=== PATIENT | male | born 2000 | race African-American/Black ===

== ENCOUNTER 2019-07-02 09:59 | Emergency (ER) | payer MEDICAID ==
[~2019-07-02] VITALS: Ht 193 cm; Wt 100.0 kg
[2019-07-02 11:33] LABS: BASOPHILS % (AUTO) 0.4 % (0.0-2.0); EOSINOPHILS % (AUTO) 0.4 % (1.0-6.0); HEMATOCRIT 49.2 % (41-53); HEMOGLOBIN 16.2 g/dL (13.5-17.5); LYMPHOCYTES # (AUTO) 1.8 K/uL (1.0-4.8); LYMPHOCYTES % (AUTO) 22.9 % (22.0-44.0); MEAN CORPUSCULAR HEMOGLOBIN 28.3 pg (26.0-34.0); MEAN CORPUSCULAR HGB CONC 32.9 G/dL (31.0-37.0); MEAN CORPUSCULAR VOLUME 86 fL (80-100); MONOCYTES # (AUTO) 0.3 K/uL (0.1-1.0); MONOCYTES % (AUTO) 3.6 % (2.0-9.0); NEUTROPHILS # (AUTO) 5.8 K/uL (1.8-7.7); NEUTROPHILS % (AUTO) 72.7 % (40.0-70.0); PLATELET COUNT (AUTO) 223 K/uL (150-450); RED BLOOD CELL COUNT(AUTO) 5.72 MIL/uL (4.50-5.90); RED CELL DISTRIBUTION WIDTH 13.3 % (11.5-14.5)
[2019-07-02 11:45] LABS: ANION GAP 9 mmol/L (8-16); CALCIUM, TOTAL 9.4 mg/dL (8.8-10.5); CARBON DIOXIDE 28 mmol/L (22-29); CHLORIDE 100 mmol/L (98-107); CREATININE 1.12 mg/dL (0.60-1.30); GLOMERULAR FILTR. RATE CALC > 60 mL/min (>60); GLUCOSE,RANDOM 88 mg/dL (70-110); POTASSIUM 3.7 mmol/L (3.5-5.1); SODIUM SERUM 137 mmol/L (136-145); UREA NITROGEN, BLOOD 8 mg/dL (7-18)
[2019-07-02 12:06] LABS: ALANINE AMINOTRANSFERASE 30 U/L (12-78); ALBUMIN 4.8 g/dL (3.4-5.0); ALKALINE PHOSPHATASE 57 U/L (46-116); ASPARTATE AMINOTRANSFERASE 18 U/L (15-37); BILIRUBIN,TOTAL 1.1 mg/dL (0.1-1.0); THYROID STIMULATING HORMONE 0.48 uIU/mL (0.36-3.74); TOTAL PROTEIN, SERUM 8.3 g/dL (6.4-8.2)
[2019-07-02] MEDS ORDERED: LORazepam 1 MG TABLET PO ONE (13:45)
[2019-07-02 14:01] VITALS: BP 133/87
== END 2019-07-02 14:08 | disposition home or self-care (01) ==
LOC: EMS 10:00
DX: F43.0 Acute stress reaction (principal)
CPT/HCPCS: 36415; 80053; 84443; 85025; 99284; G0480

== ENCOUNTER 2019-10-17 13:48 | Emergency (ER) | payer MEDICAID ==
[~2019-10-17] VITALS: Ht 195.6 cm; Wt 104.5 kg
[2019-10-17] MEDS: AZITHROMYCIN 500 MG TABLET PO ONE (15:20)
[2019-10-17] MEDS: LIDOCAINE/PF 1% 2 ML VIAL IM ONE (15:20)
[2019-10-17] MEDS: CefTRIAXone SODIUM 1 GM/VIAL IM ONE (15:20)
[2019-10-17 15:33] LABS: APPEARANCE,URINE CLEAR (CLEAR); BILIRUBIN,URINE NEGATIVE (NEGATIVE); GLUCOSE, URINE (UA) NEGATIVE (NEGATIVE); KETONES,URINE NEGATIVE (NEGATIVE); LEUKOCYTE ESTERASE ,URINE NEGATIVE (NEGATIVE); NITRATE,URINE NEGATIVE (NEGATIVE); OCCULT BLOOD,URINE NEGATIVE (NEGATIVE); PROTEIN,URINE NEGATIVE (NEGATIVE); UROBILINOGEN,URINE 0.2 mg/dL (<=1.0)
[2019-10-17 15:42] LABS: BACTERIA,URINE None Seen /HPF (None Seen); RBC,URINE None Seen /HPF (0-2); SQUAMOUS EPITHELIAL CELL,UR Rare /LPF (None Seen); WBC,URINE None Seen /HPF (0-5)
[2019-10-17 16:14] VITALS: BP 133/88
== END 2019-10-17 16:15 | disposition home or self-care (01) ==
LOC: EMS 13:50
DX: Z11.3 Encounter for screening for infections with a predominantly sexual mode of transmission (principal); F12.90 Cannabis use, unspecified, uncomplicated
CPT/HCPCS: 81001; 87491; 87591; 96372; 99283; J0696; J3490

== ENCOUNTER 2019-10-21 17:21 | Emergency (ER) | payer SELFPAY ==
[~2019-10-21] VITALS: Ht 195.6 cm; Wt 106.8 kg
[2019-10-21] MEDS ORDERED: IBUPROFEN 400 MG TABLET PO ONE (18:45)
[2019-10-21 20:48] VITALS: BP 132/87
== END 2019-10-21 20:49 | disposition home or self-care (01) ==
LOC: EMS 17:23
DX: N41.9 Inflammatory disease of prostate, unspecified (principal); F12.90 Cannabis use, unspecified, uncomplicated
CPT/HCPCS: 76870

== ENCOUNTER 2020-04-24 14:33 | Emergency (ER) | payer MEDICAID, OTHER ==
[~2020-04-24] VITALS: Ht 195.6 cm; Wt 100.0 kg
[2020-04-24 14:34] VITALS: BP 147/82
[2020-04-24] MEDS ORDERED: PERTUSS(ACELL),DIPH,TET VAC/PF 0.5 ML VIAL IM ONE (16:00)
[2020-04-24] MEDS ORDERED: AMOX TR/POT CLAV 875 MG/125 MG TABLET PO ONE (16:00)
== END 2020-04-24 16:31 | disposition home or self-care (01) ==
LOC: EMS 14:33
DX: S80.811A Abrasion, right lower leg, initial encounter (principal); F12.90 Cannabis use, unspecified, uncomplicated; W54.0XXA Bitten by dog, initial encounter; Y93.89 Activity, other specified; Y92.89 Other specified places as the place of occurrence of the external cause; Y99.8 Other external cause status
CPT/HCPCS: 90471; 90715

== ENCOUNTER 2020-06-07 17:56 | Emergency (ER) | payer OTHER ==
[~2020-06-07] VITALS: Ht 195.6 cm; Wt 104.5 kg
[2020-06-07 17:57] VITALS: BP 125/86
== END 2020-06-07 21:30 | disposition left against medical advice (07) ==
LOC: EMS 17:56
DX: R51.9 Headache, unspecified (principal); Z53.21 Procedure and treatment not carried out due to patient leaving prior to being seen by health care provider